=== PATIENT | female | born 1995 | race Caucasian/White ===

== ENCOUNTER 2019-10-01 18:52 | Emergency (ER) | payer BC ==
[~2019-10-01] VITALS: Ht 162.6 cm; Wt 104.5 kg
[2019-10-01 18:57] VITALS: TEMP 97.1
[2019-10-01] MEDS ORDERED: PROTONIX20 MG PO (19:44)
[2019-10-01 20:35] VITALS: BP 132/83; PULSE 97
== END 2019-10-01 20:35 | disposition home or self-care (01) ==
LOC: COL.ER 18:52
DX: M54.6 Pain in thoracic spine (principal)

== ENCOUNTER → 2019-10-02 | Outpatient (CLI) | payer BC ==
[~2019-10-02] MED LIST: PROTONIX20 MG PO
== END ==
LOC: COL.RAD 08:06
DX: K80.20 Calculus of gallbladder without cholecystitis without obstruction (principal)